=== PATIENT | male | born 1945 | race Caucasian/White ===

== ENCOUNTER 2017-05-03 11:53 | Emergency (ER) | payer OTHER, MEDICARE ==
[~2017-05-03] VITALS: Ht 190.5 cm; Wt 86.7 kg
[2017-05-03] MEDS ORDERED: hydrALAZINE 25 MG tablet PO STA (12:39)
[2017-05-03] MEDS ORDERED: IRBE150T51 PO (12:41)
[2017-05-03 12:46] LABS: BASOPHILS % (AUTO) 0.4 % (0-1); EOSINOPHILS # (AUTO) 0.2 X10'3 (0-0.9); EOSINOPHILS % (AUTO) 3.2 % (0-6); HEMATOCRIT 40.5 % (42.0-52.0); HEMOGLOBIN 14.3 g/dl (14.0-17.9); LYMPHOCYTES # (AUTO) 1.4 X10'3 (1.1-4.8); LYMPHOCYTES % (AUTO) 18.5 % (21-51); MEAN CORPUSCULAR HEMOGLOBIN 31.1 PG (27.0-31.0); MEAN CORPUSCULAR HGB CONC 35.3 % (33.0-36.5); MEAN CORPUSCULAR VOLUME 87.9 FL (78-98); MEAN PLATELET VOLUME 9.7 FL (7.4-10.4); MONOCYTES # (AUTO) 0.6 X10'3 (0-0.9); MONOCYTES % (AUTO) 7.3 % (2-12); NEUTROPHILS # (AUTO) 5.3 X10'3 (1.8-7.7); NEUTROPHILS % (AUTO) 70.6 % (42-75); PLATELET COUNT 163 X10'3 (140-440); RED BLOOD COUNT 4.61 X10'6 (4.70-6.10); RED CELL DISTRIBUTION WIDTH 12.8 % (11.5-14.5); WHITE BLOOD COUNT 7.6 X10'3 (4.5-11.0)
[2017-05-03 13:09] LABS: ALANINE AMINOTRANSFERASE 40 U/L (12-78); ALBUMIN 3.9 G/DL (3.4-5.0); ALBUMIN/GLOBULIN RATIO 1.1 (1.1-1.5); ALKALINE PHOSPHATASE 81 IU/L (46-116); ANION GAP 10 (8-16); ASPARTATE AMINO TRANSFERASE 16 U/L (10-37); BILIRUBIN,TOTAL 0.8 MG/DL (0.1-1.0); BLOOD UREA NITROGEN 14 MG/DL (7-18); CALCIUM 9.5 MG/DL (8.5-10.1); CHLORIDE 99 MMOL/L (99-107); GLUCOSE 97 MG/DL (70-104); POTASSIUM 3.4 MMOL/L (3.5-5.1); SODIUM 137 MMOL/L (135-145); TOTAL CARBON DIOXIDE 28.4 MMOL/L (24-32); TOTAL PROTEIN 7.4 G/DL (6.4-8.2); eGFR 74 ML/MIN
[2017-05-03 13:51] VITALS: BP 164/75
== END 2017-05-03 13:53 | disposition home or self-care (01) ==
LOC: ER 11:54
DX: I10 Essential (primary) hypertension (principal); J45.909 Unspecified asthma, uncomplicated; Z79.899 Other long term (current) drug therapy
CPT/HCPCS: 36415; 80053; 83880; 84484; 85025; 93005; 99285

== ENCOUNTER 2020-12-08 15:02 | Inpatient (IN) | payer OTHER, MEDICARE ==
[~2020-12-08] VITALS: Ht 190.5 cm; Wt 113.6 kg
[~2020-12-08 15:02] MED LIST: IRBE150T51 PO
[2020-12-08 15:56] LABS: BASOPHILS # (AUTO) 0.1 X10'3 (0-0.2); EOSINOPHILS # (AUTO) 0.4 X10'3 (0-0.9); EOSINOPHILS % (AUTO) 5.2 % (0-6); HEMATOCRIT 43.5 % (42.0-52.0); LYMPHOCYTES # (AUTO) 1.8 X10'3 (1.1-4.8); LYMPHOCYTES % (AUTO) 21.9 % (21-51); MEAN CORPUSCULAR HEMOGLOBIN 30.8 PG (27.0-31.0); MEAN CORPUSCULAR HGB CONC 34.6 g/dL (33.0-36.5); MEAN PLATELET VOLUME 10.8 FL (7.4-10.4); MONOCYTES # (AUTO) 0.7 X10'3 (0-0.9); MONOCYTES % (AUTO) 8.3 % (2-12); NEUTROPHILS # (AUTO) 5.1 X10'3 (1.8-7.7); NEUTROPHILS % (AUTO) 63.6 % (42-75); PLATELET COUNT 187 X10'3 (140-440); RED BLOOD COUNT 4.89 X10'6 (4.70-6.10); RED CELL DISTRIBUTION WIDTH 12.7 % (11.5-14.5)
[2020-12-08 16:16] LABS: LARGE PLATELETS FEW; PLATELET ESTIMATE NORMAL
[2020-12-08 16:22] LABS: GLUCOSE 88 MG/DL (70-104)
[2020-12-08 16:23] LABS: ALANINE AMINOTRANSFERASE 41 U/L (12-78); ALBUMIN 3.9 G/DL (3.4-5.0); ALKALINE PHOSPHATASE 69 IU/L (46-116); ANION GAP 9 (8-16); ASPARTATE AMINO TRANSFERASE 30 U/L (10-37); BILIRUBIN,TOTAL 0.6 MG/DL (0.1-1.0); BLOOD UREA NITROGEN 14 MG/DL (7-18); CALCIUM 9.3 MG/DL (8.5-10.1); CHLORIDE 103 MMOL/L (99-107); CREATININE 1.17 MG/DL (0.60-1.10); POTASSIUM 4.1 MMOL/L (3.5-5.1); SODIUM 137 MMOL/L (135-145); TOTAL CARBON DIOXIDE 25.4 MMOL/L (24-32); TOTAL PROTEIN 7.7 G/DL (6.4-8.2); eGFR 61 ML/MIN
[2020-12-08] MEDS ORDERED: normal saline 1000ml 1,000 ML IV ONE (20:25)
[2020-12-08] MEDS ORDERED: iohexol 350MG/ML 100ml bottle IV ONE (20:27)
[2020-12-08 21:10] LABS: MAGNESIUM 2.2 MG/DL (1.5-2.4)
[2020-12-09] MEDS ORDERED: HYDROcodone/acetaminophen 10/325mg tab PO PRN (03:45)
[2020-12-09] MEDS ORDERED: magnesium Cl slow-release 64mg tablet PO PRN (03:45)
[2020-12-09] MEDS ORDERED: ondansetron/PF 4mg/2ml inj IV PRN (03:45)
[2020-12-09] MEDS ORDERED: morphine 2 MG/ML inj. syringe IV PRN ×2 (03:45)
[2020-12-09] MEDS ORDERED: acetaminophen 325mg tablet PO PRN ×2 (03:45)
[2020-12-09] MEDS ORDERED: potassium Cl 20 mEq SR tablet PO PRN ×2 (03:45)
[2020-12-09] MEDS ORDERED: magnesium 4gm in 100ml NS 100 ML IV PRN (03:45)
[2020-12-09] MEDS ORDERED: magnesium 2GM in 50ml NS 50 ML IV PRN (03:45)
[2020-12-09] MEDS ORDERED: HYDROcodone/acetaminophen 5mg/325mg tablet PO PRN (03:45)
[2020-12-09] MEDS ORDERED: potassium Cl 40MEQ/1/2NS 520ml 520 ML IV PRN ×2 (03:45)
[2020-12-09] MEDS ORDERED: HYDROmorphone inj. 0.5 MG/0.5 ML DISP.SYRIN IV PRN (03:45)
[2020-12-09] MEDS ORDERED: NIFE-33 PO (04:18)
[2020-12-09] MEDS ORDERED: VALS80TA32 PO (04:20)
[2020-12-09] MEDS ORDERED: albuterol 2.5 MG/3 ML nebule NEB PRN (05:00)
[2020-12-09] MEDS: normal saline 1000ml 1,000 ML IV SCH ×3 (06:57→19:05)
[2020-12-09] MEDS: NIFEdipine XL 30mg tablet PO SCH (08:00)
[2020-12-09] MEDS: K and/or MAG REPLACEMENT MC SCH ×2 (08:00→20:00)
[2020-12-09] MEDS: losartan 50mg tablet PO SCH (09:41)
[2020-12-09] MEDS: heparin, porcine 5000 units/ml vial SQ SCH ×2 (09:43→20:09)
[2020-12-09] MEDS: levoFLOXACIN-Levaquin 500mg/D5 100 ML IV SCH (09:44)
--- NOTE | 2020-12-09 16:09 | NUR ---
attempted to call report, no rn assigned, will call back. Addendum: 12/09/20 at 1609 by TRACY melany
--- NOTE | 2020-12-09 16:45 | NUR ---
Patient in room [facility]. I have received report from Andrew RESPIRATORY SCIENTIST nurse and had the opportunity to ask questions and assume patient care.
--- NOTE | 2020-12-09 17:00 | NUR ---
Pt is A & O x4 and in no apparent distress. Pt is ambulatory, strong and no respiratory issues noted. Lungs are clear, pitted edema +2 bilateral lower legs. Pt's is bed side. Pt has NS running at 100ml/hr, no pain. Pt NPO since midnight. Dr luz was consulted for possible surgery.
[2020-12-09 17:22] VITALS: BP 166/78
[2020-12-09 18:00] VITALS: BP 173/95
--- NOTE | 2020-12-09 18:30 | NUR ---
Patient in room [facility]. I have received report from DAYAN Solis and had the opportunity to ask questions and assume patient care with TRINO student Ted. Addendum: 12/10/20 at 0003 by Gina Regalado RN Amended: Links added.
--- NOTE | 2020-12-09 18:45 | NUR ---
Problems reprioritized. Patient report given, questions answered & plan of care reviewed with Kelli HANLEY.
[2020-12-09] MEDS ORDERED: temazepam 15mg capsule PO PRN (21:00)
[2020-12-10] VITALS: BP 133/68
[2020-12-10] MEDS: normal saline 1000ml 1,000 ML IV SCH (04:29)
--- NOTE | 2020-12-10 05:17 | NUR ---
Student documentation: I have reviewed and agree with all interventions, assessments performed and documented by DANDY. ALL INTERVENTIONS SUPERVISED Addendum: 12/10/20 at 0517 by Gina Regalado RN Amended: Links added.
[2020-12-10 05:54] LABS: BASOPHILS % (AUTO) 0.6 % (0-1); EOSINOPHILS # (AUTO) 0.3 X10'3 (0-0.9); EOSINOPHILS % (AUTO) 5.4 % (0-6); HEMATOCRIT 41.3 % (42.0-52.0); HEMOGLOBIN 14.2 g/dl (14.0-17.9); LYMPHOCYTES # (AUTO) 1.2 X10'3 (1.1-4.8); LYMPHOCYTES % (AUTO) 20.4 % (21-51); MEAN CORPUSCULAR HEMOGLOBIN 30.9 PG (27.0-31.0); MEAN CORPUSCULAR HGB CONC 34.4 g/dL (33.0-36.5); MEAN CORPUSCULAR VOLUME 89.8 FL (78-98); MONOCYTES # (AUTO) 0.8 X10'3 (0-0.9); MONOCYTES % (AUTO) 14.5 % (2-12); NEUTROPHILS # (AUTO) 3.4 X10'3 (1.8-7.7); NEUTROPHILS % (AUTO) 59.1 % (42-75); PLATELET COUNT 161 X10'3 (140-440); WHITE BLOOD COUNT 5.8 X10'3 (4.5-11.0)
[2020-12-10 06:08] LABS: ALANINE AMINOTRANSFERASE 23 U/L (12-78); ALBUMIN/GLOBULIN RATIO 0.9 (1.1-1.5); ALKALINE PHOSPHATASE 57 IU/L (46-116); ANION GAP 9 (8-16); ASPARTATE AMINO TRANSFERASE 31 U/L (10-37); BILIRUBIN,TOTAL 0.8 MG/DL (0.1-1.0); BLOOD UREA NITROGEN 11 MG/DL (7-18); BUN/CREATININE RATIO 9.8 (5.4-32.0); CALCIUM 8.4 MG/DL (8.5-10.1); CHLORIDE 105 MMOL/L (99-107); CREATININE 1.12 MG/DL (0.60-1.10); GLUCOSE 89 MG/DL (70-104); POTASSIUM 3.7 MMOL/L (3.5-5.1); SODIUM 138 MMOL/L (135-145); TOTAL PROTEIN 6.4 G/DL (6.4-8.2); eGFR 64 ML/MIN
--- NOTE | 2020-12-10 06:16 | NUR ---
Problems reprioritized. Patient report given, questions answered & plan of care reviewed with DAYAN Solis.
--- NOTE | 2020-12-10 06:55 | NUR ---
Patient in room [facility]. I have received report from Kelli HANLEY and had the opportunity to ask questions and assume patient care.
[2020-12-10 07:00] VITALS: BP 151/84
[2020-12-10] MEDS: heparin, porcine 5000 units/ml vial SQ SCH (08:00)
[2020-12-10] MEDS: K and/or MAG REPLACEMENT MC SCH (08:00)
[2020-12-10] MEDS: losartan 50mg tablet PO SCH (08:01)
[2020-12-10] MEDS: levoFLOXACIN-Levaquin 500mg/D5 100 ML IV SCH (08:03)
[2020-12-10] MEDS: NIFEdipine XL 30mg tablet PO SCH (08:03)
[2020-12-10] MEDS ORDERED: DILT180C66 PO (10:02)
[2020-12-10 11:00] VITALS: BP 133/64
--- NOTE | 2020-12-10 13:20 | NUR ---
Student documentation: I have reviewed and agree with all interventions, assessments performed and documented by Damon scott [facility] student.
--- NOTE | 2020-12-10 13:20 | NUR ---
Pt DC to home with . pt is A & o x4 and in no apparent distress. pt verbalizes understanding of all DC orders and the importance of following up with Dr Leslie and PCP as well as the financial aid officer. pt has not required any pain medications since all day and asked if he could drive himself home. Pt is OK to drive since no narcotics were given today or last night. IV cath removed intact. pt got dressed and wanted to walk to the front. where he went home.
== END 2020-12-10 13:20 | disposition home or self-care (01) | DRG 607 ==
LOC: ER 15:03 → ED HOLD 12-09 03:45 → UNDOADMIN 12-09 03:45 → ED HOLD 12-09 04:32 → SUR 3N 12-09 16:50
PROVIDERS: ADMIT Internal Medicine; ATTEND Family Medicine
PROC: B32T1ZZ Computerized Tomography (CT Scan) of Left Pulmonary Artery using Low Osmolar Contrast (ICD-10-PCS; principal; 2020-12-08)
PROC: B3201ZZ Computerized Tomography (CT Scan) of Thoracic Aorta using Low Osmolar Contrast (ICD-10-PCS; 2020-12-08)
PROC: B32S1ZZ Computerized Tomography (CT Scan) of Right Pulmonary Artery using Low Osmolar Contrast (ICD-10-PCS; 2020-12-08)
DX: D17.9 Benign lipomatous neoplasm, unspecified (principal); I10 Essential (primary) hypertension; R00.0 Tachycardia, unspecified; Z20.822 Contact with and (suspected) exposure to COVID-19; I44.7 Left bundle-branch block, unspecified; J45.909 Unspecified asthma, uncomplicated; R22.2 Localized swelling, mass and lump, trunk; Z88.2 Allergy status to sulfonamides; Z72.89 Other problems related to lifestyle; I16.0 Hypertensive urgency
CPT/HCPCS: 36415; 71045; 71275; 80053; 83605; 83735; 83880; 84443; 84484; 85008; 85025; 87040; 87081; 87635; 93005; 93306; 97116; 97161; 97530; 99285; G0378; J1644; J1956; J7030; Q9967